=== PATIENT | female | born 1990 | race American Indian/Alaskan Native ===

== ENCOUNTER 2017-06-11 07:21 | Day surgery (SDC) | payer OTHER ==
[2017-06-11 08:49] VITALS: O2SAT 100
[2017-06-11] MEDS ORDERED: Propofol 10 mg/ml Inj (20 ML) ONE (09:39)
--- NOTE | 2017-06-11 09:42 | CP.SDSHP ---
Same Day Surgery H & P - History Proposed Procedure: EGD Pre-Op Diagnosis: SEE NOTES - Previous Medical/Surgical History Misc: Other Pain: 4.Moderate Pain - Allergies Allergies: Allergies amoxicillin Adverse Reaction (Verified 06/11/17 08:09) RASH clindamycin Adverse Reaction (Verified 06/11/17 08:12) RASH peanut Adverse Reaction (Verified 06/11/17 08:10) RASH Penicillins Adverse Reaction (Verified 06/11/17 08:09) RASH - Physical Exam General Appearance: N Vital Signs: Vital Signs 06/11/17 08:37 Temperature 97 F L Pulse Rate 65 Respiratory 20 Rate Blood Pressure 114/60 O2 Sat by Pulse 100 Oximetry Mental Status: Alert & Oriented x3 Neuro: WNL Heart: WNL Lungs: WNL GI: Other - {Optional Preform as Required} Breast: WNL Abdomen: Other Rectal: Other Integument: WNL : WNL Ortho: WNL ENT: WNL - Impression Pt. Evaluated Today:Candidate for Anesthesia & Procedure: Yes - Date & Time Time: 09:41 Short Stay Discharge - Short Stay Discharge Admitting Diagnosis/Reason for Visit: FUNCTIONAL DYSPEPSIA Disposition: HOME/ ROUTINE
[2017-06-11 10:11] VITALS: TEMP 97.8
[2017-06-11] MEDS ORDERED: Belladonna-Phenobarbital PO ONE (10:15)
[2017-06-11] MEDS ORDERED: Pantoprazole 40 mg EC Tab PO ONE (10:35)
[2017-06-11 11:35] VITALS: BP 108/57; PULSE 65; RESP 19
== END 2017-06-11 11:00 | disposition home or self-care (01) ==
LOC: C.ENDO 07:21
PROVIDERS: ATTEND Specialist
DX: K29.80 Duodenitis without bleeding (principal); K30 Functional dyspepsia; K29.70 Gastritis, unspecified, without bleeding
CPT/HCPCS: 43239; 84703; 88305; 88342; J2001; J2704